=== PATIENT | male | born 1945 | race Two or more races ===

== ENCOUNTER 2016-07-27 15:27 | Inpatient (IN) | payer BC, MEDICARE, OTHER ==
[~2016-07-27] VITALS: Ht 165.1 cm; Wt 77.1 kg
[2016-07-27 16:02] LABS: BASOPHILS % (AUTO) 0.9 % (0.0-2.0); DIFF TOTAL % 100 %; EOSINOPHILS % (AUTO) 1.1 % (0.0-6.0); HEMATOCRIT 43 % (39-51); HEMOGLOBIN 14.4 g/dL (13.5-17.5); LYMPHOCYTES # (AUTO) 0.9 /CMM (0.8-4.8); LYMPHOCYTES % (AUTO) 24.6 % (20.0-44.0); MEAN CORPUSCULAR HEMOGLOBIN 29 PG (26.0-33.0); MEAN CORPUSCULAR HGB CONC 33 g/dl (31.0-36.0); MEAN CORPUSCULAR VOLUME 86 fL (80-96); MONOCYTES # (AUTO) 0.6 /CMM (0.1-1.30); NEUTROPHILS % (AUTO) 56.4 % (43.0-81.0); PLATELET COUNT (AUTO) 173 /CMM (150-450); RED BLOOD CELL COUNT(AUTO) 5.03 MIL/uL (4.5-6.0); WHITE BLOOD COUNT (AUTO) 3.5 K/uL (4.3-11.0)
[2016-07-27 16:18] LABS: CREATININE 0.7 mg/dL (0.6-1.3); POTASSIUM 4.1 mmol/L (3.5-5.1)
[2016-07-27 16:22] LABS: INR 0.99 (0.87-1.13); PROTHROMBIN TIME 10.4 SECS (9.5-12.7)
[2016-07-27 16:24] LABS: CALCIUM, SERUM 9.2 mg/dL (8.5-10.1)
[2016-07-27] MEDS ORDERED: IV NS 0.9% 1,000 ML IV PRN ×2 (16:26→17:00)
[2016-07-27] MEDS ORDERED: ACETAMINOPHEN 325 MG TABLET PO PRN ×2 (16:30→17:00)
[2016-07-27] MEDS ORDERED: ZOLPIDEM TARTRATE 5 MG TABLET PO PRN ×2 (16:30→22:00)
[2016-07-27] MEDS ORDERED: ENOXAPARIN SODIUM 40 MG/0.4 ML DISP.SYRIN SQ SCH ×2 (16:30→17:00)
[2016-07-27] MEDS ORDERED: ONDANSETRON HCL/PF 4 MG/2 ML VIAL IVP PRN ×2 (16:30→17:00)
[2016-07-27] MEDS ORDERED: MAGNESIUM HYDROXIDE 30 ML UDC PO PRN ×2 (16:30→17:00)
[2016-07-27] MEDS ORDERED: MAG HYDROX/AL HYDROX/SIMETH 30 ML UDC PO PRN ×2 (16:30→17:00)
[2016-07-27] MEDS ORDERED: Z GUARD REMEDY 2 OZ OINT TP PRN ×2 (16:30→17:00)
[2016-07-27] MEDS ORDERED: ASPIRIN 325 MG TABLET PO ONE (16:30)
[2016-07-27] MEDS ORDERED: HYDROCODONE/APAP 5/325MG 1 EACH TABLET PO PRN ×2 (16:30→17:00)
[2016-07-27] MEDS ORDERED: TAMS0.4C34 PO (16:36)
[2016-07-27] MEDS ORDERED: FINA5TAB3 PO (16:36)
[2016-07-27 17:00] VITALS: BP 134/77
[2016-07-27 18:22] VITALS: BP 134/72
[2016-07-27 20:24] VITALS: BP 126/71
[2016-07-27 21:00] VITALS: BP 126/71
[2016-07-27] MEDS ORDERED: IV SET PRIMARY PUMP SET 1 EA INFUS.SET MC ONE (22:50)
[2016-07-28 00:05] VITALS: BP 114/69
[2016-07-28 00:07] VITALS: BP 114/69
[2016-07-28 04:00] VITALS: BP 118/76
[2016-07-28 04:01] VITALS: BP 118/76
[2016-07-28 06:49] VITALS: BP 121/70
[2016-07-28] MEDS ORDERED: PANTOPRAZOLE 40 MG TABLET.DR PO SCH ×2 (07:30)
[2016-07-28 08:00] VITALS: BP 121/70
[2016-07-28 08:22] LABS: ALBUMIN 3.7 g/dL (3.4-5.0); BILIRUBIN,DIRECT 0.1 mg/dL (0.0-0.2); BILIRUBIN,TOTAL 0.5 mg/dL (0.2-1.0); INDIRECT BILIRUBIN 0.4 mg/dL (0.0-1.1)
[2016-07-28 08:30] LABS: THYROID STIMULATING HORMONE 5.421 uIU/mL (0.358-3.74)
[2016-07-28] MEDS ORDERED: ASPIRIN EC 325 MG TABLET.DR PO SCH (09:00)
[2016-07-28] MEDS ORDERED: TAMSULOSIN 0.4 MG CAP.SR.24H PO SCH (09:00)
[2016-07-28] MEDS ORDERED: FINASTERIDE (5 MG) 5 MG TABLET PO SCH (09:00)
[2016-07-28 10:03] LABS: ADD UA MICROSCOPIC NO; KETONES,URINE NEGATIVE (NEGATIVE); LEUKOCYTE ESTERASE ,URINE NEGATIVE (NEGATIVE); PH,URINE 6.5 (5.0-8.0)
[2016-07-28 10:13] LABS: CANNABINOID, URINE NEGATIVE (NEGATIVE); PHENCYCLIDINE SCREEN,URINE NEGATIVE (NEGATIVE)
[2016-07-28] MEDS ORDERED: ASPI81TA2 PO (12:50)
[2016-07-28] MEDS ORDERED: ATOR10TA PO (12:50)
[2016-07-28] MEDS ORDERED: ENOXAPARIN SODIUM 40 MG/0.4 ML DISP.SYRIN SQ SCH (21:00)
[2016-07-28] MEDS ORDERED: ATORVASTATIN 40 MG TABLET PO SCH (22:00)
== END 2016-07-28 13:25 | disposition home or self-care (01) | DRG 69 ==
LOC: ER 15:28 → TELE 17:19 → MED 07-28 10:26
PROVIDERS: ADMIT Internal Medicine; ATTEND Internal Medicine
DX: G45.9 Transient cerebral ischemic attack, unspecified (principal); N40.0 Benign prostatic hyperplasia without lower urinary tract symptoms; Z87.442 Personal history of urinary calculi; I34.0 Nonrheumatic mitral (valve) insufficiency; E78.5 Hyperlipidemia, unspecified; I25.10 Atherosclerotic heart disease of native coronary artery without angina pectoris; K21.9 Gastro-esophageal reflux disease without esophagitis
CPT/HCPCS: 36415; 70450-TC; 80048-TC; 80061-TC; 80076-TC; 80305; 81000-TC; 84443-TC; 85025-TC; 85730-TC; 87081-TC; 93307-TC; 93880-TC; 97001-TC; A4606; J1650; J7030; Z7610

== ENCOUNTER → 2016-08-07 | Outpatient (CLI) | payer BC, MEDICARE, OTHER ==
[~2016-08-07] MED LIST: ASPI81TA2 PO; ATOR10TA PO; FINA5TAB3 PO; TAMS0.4C34 PO
[2016-08-07 11:06] LABS: THYROID STIMULATING HORMONE 3.296 uIU/mL (0.358-3.74)
== END ==
LOC: LAB 09:12
PROVIDERS: ATTEND Family Medicine
DX: I70.0 Atherosclerosis of aorta (principal); M47.899 Other spondylosis, site unspecified; Z86.73 Personal history of transient ischemic attack (TIA), and cerebral infarction without residual deficits
CPT/HCPCS: 36415; 71020-TC; 84439-TC; 84443-TC